=== PATIENT | male | born 1965 ===

== ENCOUNTER 2024-07-26 14:19 | Emergency (ER) | payer MEDICAID ==
[~2024-07-26] VITALS: Ht 177.8 cm; Wt 164.0 kg
[2024-07-26 14:55] VITALS: TEMP 98.9
[2024-07-26] MEDS ORDERED: HYDR-4072 PO (15:47)
[2024-07-26] MEDS: HYDROCODONE/ACETAMINOPHEN 10-325 MG TABLET PO ONE (15:55)
[2024-07-26 16:30] VITALS: BP 134/76; PULSE 96; RESP 16; O2SAT 99
== END 2024-07-26 18:20 | disposition home or self-care (01) ==
LOC: EMS 14:19
DX: S42.212A Unspecified displaced fracture of surgical neck of left humerus, initial encounter for closed fracture (principal); S00.83XA Contusion of other part of head, initial encounter; M79.642 Pain in left hand; M79.602 Pain in left arm; M54.2 Cervicalgia; W01.0XXA Fall on same level from slipping, tripping and stumbling without subsequent striking against object, initial encounter; Y93.01 Activity, walking, marching and hiking; Y92.89 Other specified places as the place of occurrence of the external cause; Y99.8 Other external cause status; Z86.718 Personal history of other venous thrombosis and embolism; Z79.01 Long term (current) use of anticoagulants
CPT/HCPCS: 70450; 72125; 99284